=== PATIENT | female | born 2000 | race Caucasian/White ===

== ENCOUNTER 2024-02-28 09:07 | Emergency (ER) | payer MEDICAID, SELFPAY ==
[2024-02-28] VITALS (22 sets, daily range): BP systolic 113–154; BP diastolic 56–90; PULSE 67–92; RESP 12–21; TEMP 36.6; O2SAT 93–100; BMI 39.4
--- NOTE | 2024-02-28 09:08 | XRR_ITS ---
PROCEDURE INFORMATION: Exam: XR Chest Exam date and time: 02/28/2024 9:20 AM Age: 23 years old Clinical indication: Pain; Angina pectoris; Additional info: Chest pain TECHNIQUE: Imaging protocol: Radiologic exam of the chest. Views: 1 view. COMPARISON: No relevant prior studies available. FINDINGS: Lungs: Unremarkable. No consolidation. Pleural spaces: Unremarkable. No pleural effusion. No pneumothorax. Heart/Mediastinum: Unremarkable. No cardiomegaly. Bones/joints: Unremarkable. XR/XR chest 1V portable [id number] IMPRESSION: No acute findings.
--- NOTE | 2024-02-28 09:08 | ED_ITS ---
HPI - Chest Pain General: Stated Complaint: cp Time Seen by Provider: 02/28/24 09:08 Discharge Plan Discharge Condition: Stable Referrals: Esteban Stauffer [Family Provider] - Coding Level of Care Code ED Horticultural Services Supervisor for Marycarmen Lang
--- NOTE | 2024-02-28 09:10 | ECG_ITS ---
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 Measurements Intervals [place] Rate: 74 P: 0 MA: 0 QRS: 18 QRSD: 82 T: 31 QT: 340 QTc: 379 Interpretive Statements SUPRAVENTRICULAR RHYTHM No previous ECG available for comparison Electronically Signed On 02-28-2024 11:17:46 CDT by Danny Evans M.D. [email or web address]
--- NOTE | 2024-02-28 09:22 | US_ITS ---
WS: [id number] RIGHT UPPER QUADRANT ULTRASOUND HISTORY: RUQ Pain COMPARISON: None available. Liver: 12.7 cm in length. Normal size liver. Poorly visualized liver due to body habitus. Mild hepati c steatosis is likely. Portal Vein: Normal hepatopetal flow with monophasic waveform. Gallbladder: Several stones are present in the gallbladder. Numerous small stones are identified. No pericholecystic fluid. CBD: 0.6 cm Pancreas: Not visualized. Right kidney: 10.6 cm in length. RIGHT kidney is poorly visualized. No obstruction. Aorta and IVC: Limited visualization. No ascites. Small RIGHT pleural effusion. US/US gall bladder [id number] IMPRESSION: 1. Cholelithiasis without evidence for acute cholecystitis. 2. No bile duct dilatation. 3. Small RIGHT pleural effusion. 4. Technically limited RIGHT upper quadrant ultrasound.
--- NOTE | 2024-02-28 09:22 | CTR_ITS ---
PROCEDURE INFORMATION: Exam: CT Abdomen And Pelvis With Contrast Exam date and time: 02/28/2024 11:40 AM Age: 23 years old Clinical indication: Nausea and vomiting; Abdominal pain; Epigastric; Additional info: Diffuse abdominal pain, n/v TECHNIQUE: Imaging protocol: Computed tomography of the abdomen and pelvis with contrast. Radiation optimization: All CT scans at this facility use at least one of these dose optimization techniques: automated exposure control; mA and/or kV adjustment per patient size (includes targeted exams where dose is matched to clinical indication); or iterative reconstruction. Contrast material: [id number]; Contrast volume: 100 ml; Contrast route: INTRAVENOUS (IV); COMPARISON: US gall bladder [id number] 02/28/2024 9:51 AM RADIATION DOSE METRICS: Total DLP (mGy-cm): 1224 FINDINGS: Liver: Normal. No mass. Gallbladder and biliary ducts: Normal. No calcified stones. No ductal dilation. Pancreas: The pancreas is mildly edematous and there is a small retroperitoneal effusion and mild peripancreatic stranding. Acute pancreatitis is present. No pseudocyst formation. Spleen: 12 cm borderline splenomegaly. Adrenal glands: Normal. No mass. Kidneys and ureters: Normal. No hydronephrosis. Stomach and bowel: Unremarkable. No obstruction. No mucosal thickening. Appendix: No evidence of appendicitis. Intraperitoneal space: Unremarkable. No free air. No significant fluid collection. Vasculature: Unremarkable. No abdominal aortic aneurysm. Lymph nodes: Unremarkable. No enlarged lymph nodes. Urinary bladder: Unremarkable as visualized. Reproductive: Unremarkable as visualized. Bones/joints: Unremarkable. No acute fracture. Soft tissues: Unremarkable. CT/CT abdomen pelvis w con* [id number] IMPRESSION: Acute pancreatitis.
--- NOTE | 2024-02-28 09:23 | W.ED.ABDPA2 ---
HPI - Abdominal Pain General: Chief Complaint: Chest Pain Stated Complaint: cp Time Seen by Provider: 02/28/24 09:08 Source: patient and family Mode of arrival: ambulatory Limitations: no limitations History of Present Illness: Patient is a 23-year-old female presents to ED today with a complaint of abdominal pain. She was initially triaged as chest pain however patient tells me around 5 AM this morning she woke up to right upper quadrant abdominal pain that has since spread throughout her abdomen. Patient states she has had similar discomforts intermittently over the past year or so. She states she has been told it is my gallbladder and then was told it was my liver . She has tried to follow-up with a general surgeon/GI specialist but has been unsuccessful. She feels like symptoms possibly worsen around her menstrual cycle. She does feel like abdominal pain radiates up into her chest. No shortness of breath or difficulty breathing. She is not having any bloody or mucus-like stools. She feels nauseous and has had a few episodes of vomiting this morning. No hematemesis. MD elicited complaint: abdominal pain Pertinent past history: none Onset (ago): month(s) Pain Consistency: intermittent Location: Diffuse and RUQ Severity: severe Quality: cramping Radiation: none Exacerbating factors: nothing Relieving factors: nothing Associated Symptoms: Reports GI cramping, nausea and vomiting; Denies change in bowel habits, chills, dysuria, fever(s), hematochezia, hematemesis, melena and syncope Related Data Home Medications Medication Instructions Recorded Confirmed pantoprazole 40 mg tablet,delayed 40 mg PO DAILY 02/28/24 02/28/24 release Allergies Allergy/AdvReac Type Severity Reaction Status Date / Time No Known Allergies Allergy Verified 02/28/24 09:15 Review of Systems Const: Denies: fever(s), chills, body aches, fatigue or malaise Card: Reports: chest pain (feels like abdominal pain radiates into chest); Denies: palpitations, irregular heart rhythm, edema, swelling of feet/ankles, lightheadedness, syncope, pre-syncope, dyspnea on exertion, orthopnea, leg pain with exertion or acrocyanosis Resp: Denies: dyspnea, productive cough, non-productive cough, pain on inspiration or chest congestion GI: Reports: abdominal pain, nausea, vomiting and GI cramping; Denies: hematemesis, change in bowel habits, rectal pain, rectal swelling, hematochezia or melena : Denies: flank pain, difficulty voiding, dysuria, urinary frequency, urinary urgency or urinary hesitancy Musc: Denies: back pain Neuro: Denies: headache(s) or dizziness Physical Exam Const: COMMON NORMALS: patient oriented x3, no limitations and alert GENERAL APPEARANCE: cooperative and in distress (slightly uncomfortable intermittently during abdominal cramps) NUTRITIONAL APPEARANCE: obese morbidly obese ORIENTATION/CONSCIOUSNESS: Yes awake, Yes oriented to person, Yes oriented to place and Yes oriented to time Eye: COMMON NORMALS: no scleral icterus Chest: COMMONS NORMALS: normal inspection of the chest and normal palpation of entire chest wall Resp: COMMON NORMALS: normal respiratory effort and clear to auscultation bilaterally AUSCULTATION: clear to auscultation bilaterally Cardio: COMMON NORMALS: regular rate and regular rhythm RATE: regular rate RHYTHM: regular rhythm GI: COMMON NORMALS: Normal to inspection, nondistended, normoactive bowel sounds present, Soft to palpation, No hepatosplenomegaly present and no masses INSPECTION: Yes normal to inspection AUSCULTATION: Yes normoactive bowel sounds PALPATION: Yes Soft to palpation, Yes Tenderness to palpation present (GI) (diffusely), No Guarding due to palpation present (GI), No Rigid due to palpation and Yes No hepatosplenomegaly present : COMMON NORMALS: Yes no CVA tenderness BLADDER/KIDNEY EXAM: Yes no CVA tenderness Back/Pelvis: COMMON NORMALS: no CVA tenderness and thoracic and lumbar spine normal to inspection Extremity: GENERAL: Yes normal exam except as noted Neuro: MANDI COMA SCALE: document GCS findings [place] coma scale eye opening: Spontaneous [place] coma scale verbal response: Orientated Mandi coma scale motor response: Obey commands [place] coma scale total score: 15 COMMON NORMALS: patient oriented x3 SENSORIUM/ORIENTATION: Yes alert, Yes oriented to person, Yes oriented to place and Yes oriented to time Skin: COMMON NORMALS: no rashes or lesions noted GENERAL SKIN EXAM: no rashes or lesions noted Course Consultations: Consultation #1: Dr. White-recommending transfer for ERCP Consultation #2: JOSÉ MIGUEL [facility]-accepts transfer; transfer line getting [facility] for acceptance as well Consultation #3: SURAJ Nichols; [facility] hospitalist-accepts hospitalization/transfer; accepting physician is Dr. Rankin Vital Signs: Vital signs: Vital Signs Temperature 97.8 F 02/28/24 09:11 Pulse Rate 75 02/28/24 13:21 Respiratory Rate 20 H 02/28/24 13:21 Blood Pressure 114/78 02/28/24 13:21 Pulse Oximetry 94 02/28/24 13:21 Oxygen Delivery Me thod Room Air 02/28/24 13:21 MDM - Abdominal Pain Medical Decision Making Patient is a 23-year-old female here for right upper quadrant/upper abdominal pain beginning around 5 AM this morning. She was found to have an elevated white count, elevated LFTs, and extremely elevated lipase at over 6200. US of her gallbladder showing cholelithiasis without evidence for acute cholecystitis. CT scan showing acute pancreatitis. Spoke with Dr. White who felt patient most likely needed to be transferred for evaluation for ERCP. I have spoken with GI and hospitalist group through [facility] who have accepted patient. Medical Records I reviewed the patient's medical records. Lab Data I reviewed the patient's lab results. 02/28/24 10:20 02/28/24 10:20 Labs/Radiology: Radiology Impressions Chest X-Ray 02/28/24 09:08 IMPRESSION: No acute findings. Abdomen/Pelvis CT 02/28/24 09:22 IMPRESSION: Acute pancreatitis. Gallbladder Ultrasound 02/28/24 09:22 IMPRESSION: 1. Cholelithiasis without evidence for acute cholecystitis. 2. No bile duct dilatation. 3. Small RIGHT pleural effusion. 4. Technically limited RIGHT upper quadrant ultrasound. Laboratory Results WBC 16.85 10^3/uL (3.29-11.43) H 02/28/24 10:20 RBC 5.19 10^6/uL (3.85-5.65) 02/28/24 10:20 Hgb 14.10 g/dL (11.27-16.99) 02/28/24 10:20 Hct 43.3 % (36-47) 02/28/24 10:20 MCV 83.4 fl (85-98) L 02/28/24 10:20 MCH 27.2 pg (27-33) 02/28/24 10:20 MCHC 32.6 g/dL (30-55) 02/28/24 10:20 RDW 13.7 % (12.1-15.1) 02/28/24 10:20 Plt Count 367 10^3/cmm (157-399) 02/28/24 10:20 MPV 11.0 fL (7.4-10.4) H 02/28/24 10:20 Neut % (Auto) 88.8 % 02/28/24 10:20 Lymph % (Auto) 5.8 % 02/28/24 10:20 Richardson % (Auto) 4.6 % 02/28/24 10:20 Eos % (Auto) 0.2 % 02/28/24 10:20 Baso % (Auto) 0.2 % 02/28/24 10:20 Neut # (Auto) 14.96 10^3/uL (1.8-7.7) H 02/28/24 10:20 Lymph # (Auto) 1.0 10^3/uL (0.8-4.8) 02/28/24 10:20 Richardson # (Auto) 0.8 10^3/uL (0.2-0.9) 02/28/24 10:20 Eos # (Auto) 0.0 10^3/uL (0.0-0.8) 02/28/24 10:20 Baso # (Auto) 0.0 10^3/uL (0.0-0.1) 02/28/24 10:20 Nucleated RBC % (auto) 0 % 02/28/24 10:20 Nucleated RBCs # 0.0 /100WBC 02/28/24 10:20 Sodium 137 mmol/L (136-145) 02/28/24 10:20 Potassium 3.9 mmol/L (3.5-5.1) 02/28/24 10:20 Chloride 101 mmol/L (98-107) 02/28/24 10:20 Carbon Dioxide 21 mmol/L (22-29) L 02/28/24 10:20 Anion Gap 18.9 (5-19) 02/28/24 10:20 BUN 10 mg/dL (6-20) 02/28/24 10:20 Creatinine 0.5 mg/dL (0.5-0.9) 02/28/24 10:20 GFR Calculation 155.7 mL/min (90-130) H 02/28/24 10:20 Glucose 102 mg/dL (65-115) 02/28/24 10:20 Calculated Osmolality 283 mOsm/kg (285-295) L 02/28/24 10:20 Calcium 9.4 mg/dL (8.5-10.5) 02/28/24 10:20 Total Bilirubin 1.4 mg/dL (0.15-1.2) H 02/28/24 10:20 AST 144 U/L (0-32) H 02/28/24 10:20 ALT 400 U/L (0-33) H 02/28/24 10:20 Alkaline Phosphatase 276 U/L (35-105) H 02/28/24 10:20 Total Protein 7.6 g/dL (6.6-8.7) 02/28/24 10:20 Albumin 4.1 g/dL (3.5-5.2) 02/28/24 10:20 Globulin 3.5 g/dL (1.3-4.6) 02/28/24 10:20 Lipase > 6254 U/L (13-60) H 02/28/24 10:20 HCG, Qual Negative (Negative) 02/28/24 10:20 Urine Color Yellow (Yellow) 02/28/24 10:40 Urine Appearance Clear (CLEAR) 02/28/24 10:40 Urine pH 5 (5-7) 02/28/24 10:40 Ur Specific [place] 1.020 (1.005-1.030) 02/28/24 10:40 Urine Protein Neg (Negative) 02/28/24 10:40 Urine Glucose (UA) Norm (Normal) 02/28/24 10:40 Urine Ketones 2+ (Negative) H 02/28/24 10:40 Urine Blood Neg (Negative) 02/28/24 10:40 Urine Nitrate Negative (Negative) 02/28/24 10:40 Urine Bilirubin 1+ (Negative) H 02/28/24 10:40 Urine Urobilinogen 4 mg/dL (Negative) H 02/28/24 10:40 Ur Leukocyte Esterase Negative (Negative) 02/28/24 10:40 Amorphous Sediment Not Reportable 02/28/24 10:40 Hepatitis A IgM Ab Non-reactive (Nonreactive) 02/28/24 11:35 Hep Bs Antigen Non-reactive (Nonreactive) 02/28/24 11:35 Hep B Core IgM Ab Non-reactive (Nonreactive) 02/28/24 11:35 Hepatitis C Antibody Non-reactive (Nonreactive) 02/28/24 11:35 All radiology interpretation(s) finalized by discharge Discharge Plan Discharge Patient Disposition: Xfer Short-Term Hosp Clinical Impression: Choledocholithiasis Condition: Stable Referrals: Esteban Stauffer [Referring] - Coding Level of Care Code ED 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
[2024-02-28] MEDS: ondansetron 2 mg/ML SDV 2 mL 4 MG IVP (10:25)
[2024-02-28] MEDS: morphine 4 mg/mL SDV 1 mL IVP (10:25)
[2024-02-28 10:51] LABS: Add Urine Microscopic? NO
[2024-02-28 10:57] LABS: Basophils % 0.2 %; Eosinophils % 0.2 %; Hematocrit 43.3 % (36-47); Lymphocytes % 5.8 %; Mean Corpuscular HGB Conc 32.6 g/dL (30-55); Mean Corpuscular Hemoglobin 27.2 pg (27-33); Mean Corpuscular Volume 83.4 fl (85-98); Monocytes # 0.8 10^3/uL (0.2-0.9); Monocytes % 4.6 %; Neutrophils # 14.96 10^3/uL (1.8-7.7); Neutrophils % 88.8 %; Nucleated Red Blood Cells % 0 %; Platelet Count 367 10^3/cmm (157-399); Red Blood Count 5.19 10^6/uL (3.85-5.65); Red Cell Distribution Width 13.7 % (12.1-15.1); White Blood Count 16.85 10^3/uL (3.29-11.43)
[2024-02-28 11:00] LABS: Bilirubin Urine 1+ (Negative); Blood Urine Neg (Negative); Glucose Urine UA Norm (Normal); Ketones Urine 2+ (Negative); Leukocyte Esterase Urine Negative (Negative); Nitrate Urine Negative (Negative); Protein Urine Neg (Negative); Urine Appearance Clear (CLEAR); Urine Color Yellow (Yellow); Urobilinogen Urine 4 mg/dL (Negative); pH Urine 5 (5-7)
[2024-02-28 11:01] LABS: Charge for UA Resulting for Rev
[2024-02-28 11:09] LABS: HCG, Serum Qual Negative (Negative)
[2024-02-28 11:11] LABS: Alanine Aminotransferase 400 U/L (0-33); Albumin Level 4.1 g/dL (3.5-5.2); Alkaline Phosphatase 276 U/L (35-105); Anion Gap 18.9 (5-19); Aspartate Amino Transferase 144 U/L (0-32); Blood Urea Nitrogen 10 mg/dL (6-20); Calcium 9.4 mg/dL (8.5-10.5); Carbon Dioxide 21 mmol/L (22-29); Chloride 101 mmol/L (98-107); Creatinine Clr Calc Pharmacy 239.7592; Globulin 3.5 g/dL (1.3-4.6); Glomerular Filtration Rate 155.7 mL/min (90-130); Glucose 102 mg/dL (65-115); Osmolality Calculated 283 mOsm/kg (285-295); Potassium 3.9 mmol/L (3.5-5.1); Sodium 137 mmol/L (136-145); Total Bilirubin 1.4 mg/dL (0.15-1.2); Total Protein 7.6 g/dL (6.6-8.7)
[2024-02-28] MEDS: iohexol 350 mg/mL 500 mL Btl (per mL) IV (11:43)
[2024-02-28 11:58] LABS: Lipase > 6254 U/L (13-60)
[2024-02-28 12:41] LABS: Hepatitis A Antibody IgM Non-Reactive (Nonreactive); Hepatitis B Core IgM Non-Reactive (Nonreactive); Hepatitis B Surface Antigen Non-Reactive (Nonreactive); Hepatitis C Virus Antibody Non-Reactive (Nonreactive)
[2024-02-28] MEDS: HYDROmorphone 1 mg/mL INJ 1 mL IVP ×3 (13:12→21:26)
[2024-02-28] MEDS: piperacillin-tazobactam 3.375 GM in sodium chloride 0.9% (plus) 50 ML IV (13:13)
[2024-02-28] MEDS: sodium chloride 0.9% 1,000 ML 999 ML IV (13:15)
== END 2024-02-28 21:28 | disposition short-term general hospital (02) ==
PROVIDERS: Emergency Provider Physician Assistant
DX: K80.50 Calculus of bile duct without cholangitis or cholecystitis without obstruction (principal)
CPT/HCPCS: 36415; 71045; 74177; 76705; 80053; 80074; 81003; 83690; 84703; 85025; 87040; 93005; 96365; 96366; 96375; 96376; 99285; J1170; J2270; J2405; J2543; J7030